=== PATIENT | female | born 1980 | race Caucasian/White ===

== ENCOUNTER → 2016-10-06 | Outpatient (CLI) | payer MEDICAID ==
--- NOTE | 2016-10-06 17:48 | US ---
Follow-up Obstetric Ultrasound dated October 06, 2016 Indication: Malformation of the placenta. Follow-up. The estimated gestational age by LMP is 38 week s 2 days yielding an EDC of October 18, 2016. Comparison: August 17, 2016 Findings: Number: 1 Presentation: Vertex Placental location: Posterior and fundal. No previa. Cervix: 4.4 cm transabdominally. HR: 155 bpm CATA: 13.5 cm, normal. Doppler: Umbilical artery 1: S/D ratio is 2.3. Umbilical artery 2: S/D ratio is 2.4. Umbilical vein: Patent without reversal flow. Biometry: Biparietal diameter: 9.2 cm 37 weeks 2 days Head circumference: 31.7 cm 35 weeks 5 days Abdominal circumference: 32.2 cm 36 weeks 1 day Femur length: 7 cm 36 weeks 1 day Humerus length: 6.1 cm 35 weeks 2 days HC/AC: 0.98 (0.92 - 1.05) FL/BPD: 77% FL/AC: 22% Average ultrasound age: 36 weeks 3 days EDC based on today's average ultrasound age: October 31, 2016 Estimated weight is 2865 +/- 418gms. The estimated weight is at the 15 % based on previou s dating. Detailed anatomy survey was not repeated today. No gross anomalies are seen. Impression: 1. Living davis . Size concordant with dates. The estimated gestational age by biometry is 36 weeks 3 days yielding an EDC of October 31, 2016. 2. No gross anomalies are seen.
== END ==
LOC: FIMAGING 14:23
PROVIDERS: ATTEND Physician Assistant
DX: Z34.83 Encounter for supervision of other normal pregnancy, third trimester (principal); Z3A.38 38 weeks gestation of pregnancy